=== PATIENT | female | born 1985 | race African-American/Black ===

== ENCOUNTER 2024-06-05 01:15 | Emergency (ER) | payer SELFPAY ==
[~2024-06-05] VITALS: Ht 170.2 cm; Wt 68.0 kg
[2024-06-05 01:52] LABS: BASOPHILS % (AUTO) 0.3 % (0.0-2.0); EOSINOPHILS # (AUTO) 0.2 K/uL (0.0-0.7); HEMATOCRIT 34.4 % (31.2-41.9); HEMOGLOBIN 11.3 g/dL (10.9-14.3); LYMPHOCYTES # (AUTO) 1.6 K/uL (0.8-4.8); LYMPHOCYTES % (AUTO) 20.4 % (20.5-51.5); MEAN CORPUSCULAR HEMOGLOBIN 29.6 uug (24.7-32.8); MEAN CORPUSCULAR HGB CONC 33 g/dL (32.3-35.6); MEAN CORPUSCULAR VOLUME 90.2 fL (75.5-95.3); MONOCYTES # (AUTO) 0.7 K/uL (0.1-1.30); MONOCYTES % (AUTO) 8.5 % (0.0-11.0); NEUTROPHILS # (AUTO) 5.2 K/uL (1.8-8.9); NEUTROPHILS % (AUTO) 67.8 % (38.5-71.5); PLATELET COUNT (AUTO) 425 K/uL (179-408); RED BLOOD CELL COUNT(AUTO) 3.81 MIL/uL (3.63-4.92); WHITE BLOOD COUNT (AUTO) 7.7 K/uL (3.8-11.8)
[2024-06-05] MEDS: PHENOBARBITAL SODIUM 130 MG/1 ML DISP.SYRIN IV ONE (01:56)
[2024-06-05] MEDS ORDERED: PHENOBARBITAL SODIUM 130 MG/1 ML DISP.SYRIN ONE (01:56)
[2024-06-05 02:02] LABS: AMMONIA 14 umol/L (11-32)
[2024-06-05 02:11] LABS: ALANINE AMINOTRANSFERASE 33 U/L (14-59); ALBUMIN 3.9 g/dL (3.4-5.0); ALKALINE PHOSPHATASE 98 U/L (50-136); ASPARTATE AMINOTRANSFERASE 29 U/L (15-37); BILIRUBIN,DIRECT 0.2 mg/dL (0.0-0.2); BILIRUBIN,TOTAL 0.4 mg/dL (0.2-1.0); CALCIUM 8.5 mg/dL (8.5-10.1); CARBON DIOXIDE 25 mmol/L (21-32); CHLORIDE 99 mmol/L (98-107); CREATININE 0.6 mg/dL (0.6-1.3); DIFFERENTIAL COMMENT 1; GLUCOSE 96 mg/dL (74-106); SODIUM SERUM 134 mmol/L (136-145); TOTAL PROTEIN, SERUM 7.6 g/dL (6.4-8.2); UREA NITROGEN, BLOOD 16 mg/dL (7-18)
[2024-06-05 02:13] LABS: ACETAMINOPHEN < 10.0 ug/mL (10-30)
[2024-06-05 02:16] LABS: THYROID STIMULATING HORMONE 2.054 mIU/mL (0.358-3.740)
[2024-06-05 02:37] LABS: ETHANOL < 3 MG/DL (0-10)
[2024-06-05 07:55] VITALS: BP 119/76; O2SAT 97
== END 2024-06-05 07:55 ==
LOC: ER 01:19
DX: F41.1 Generalized anxiety disorder (principal); R51.9 Headache, unspecified; R94.31 Abnormal electrocardiogram [ECG] [EKG]; Z88.0 Allergy status to penicillin
CPT/HCPCS: 80076; 80048; 82140; 84443; 85025; 85730; 84484; 36415; 70450; 93005; 99285; 96374; 80299; 80320; J2560; A4606; A4663; G0480